=== PATIENT | female | born 1965 | race Caucasian/White ===

== ENCOUNTER → 2019-07-10 | Outpatient (CLI) | payer OTHER ==
--- NOTE | 2019-07-10 12:48 | EST ---
EXERCISE STRESS DATE OF SERVICE: 07/10/2019 AGE: 53 SEX: Female HT: 62 WT: 189 PROTOCOL: Husam STAGE: II DURATION OF EXERCISE: 4 minutes HEART RATE REST: 90 BLOOD PRESSURE REST: 143/73 MAXIMUM HEART RATE ACHIEVED: 150 MAXIMUM BLOOD PRESSURE: 180/53 85% MPHR: 144 100% MPHR: 169 METS: 5.8 INDICATIONS: Chest pain. CLINICAL INFORMATION: STRESS DATA: Heart rate 90, pressure is 143/73 mmHg. Baseline EKG showed sinus mechanism. The patient exercised on the treadmill according to Husam protocol for a total of 4 minutes and achieved 5.8 METs. Max heart rate was 150 which is about 89% of maximum predicted heart rate. Maximum blood pressure was 180/53 mmHg. Clinically, the patient has no symptoms of chest pain or discomfort and the EKG did not show any significant ST or T-wave abnormalities concerning for ischemia. CONCLUSION: 1. Average exercise tolerance. The patient exercised only for 4 minutes. 2. Normal EKG in response to exercise. 3. Essentially normal stress test for the patient. MMODL / IJN: [id number] /
== END | disposition home or self-care (01) ==
LOC: RADNMMAIN 08:39
PROVIDERS: ATTEND Internal Medicine
DX: I10 Essential (primary) hypertension (principal)
CPT/HCPCS: 93017

== ENCOUNTER → 2019-07-24 | Outpatient (CLI) | payer OTHER ==
--- NOTE | 2019-07-24 12:08 | ECHOF ---
Referral Reason:I10 Essential Hypertension MEASUREMENTS -------- HEIGHT: 157.5 cm WEIGHT: 86.6 kg BP: 144/79 RVIDd: 2.7 cm (< 3.3) IVSd: 0.9 cm (0.6 - 1.1) LVIDd: 4.1 cm (3.9 - 5.3) LVPWd: 0.9 cm (0.6 - 1.1) IVSs: 1.3 cm LVIDs: 2.9 cm LVPWs: 1.5 cm LA Diam: 2.8 cm (2.7 - 3.8) LAESV Index (A-L): 24.16 ml/m Ao Diam: 3.3 cm (2.0 - 3.7) AV Cusp: 2.0 cm (1.5 - 2.6) MV EXCURSION: 13.275 mm (> 18.000) MV EF SLOPE: 76 mm/s (70 - 150) EPSS: 0.4 cm MV E Jarrell: 0.80 m/s MV DecT: 276 ms MV A Jarrell: 0.80 m/s MV E/A Ratio: 1.00 AR PHT: 926 ms RAP: 5.00 mmHg RVSP: 25.15 mmHg TAPSE: 25.38 mm FINDINGS -------- Sinus rhythm. This was a technically adequate study. The left ventricular size is normal. Left ventricular wall thickness is normal. Overall left vent ricular systolic function is normal with, an EF between 55 - 60 %. The diastolic filling pattern is normal for the age of the patient 9.42. The right ventricle is normal in size. Normal LA size by volume 22+/-6 ml/m2. The right atrial size is normal. Interatrial and interventricular septum intact. The aortic valve is trileaflet and appears structurally normal. There is mild aortic regurgitation. The mitral valve is normal. Mild tricuspid regurgitation present. Right ventricular systolic pressure is normal at < 35 mmHg. The pulmonic valve was not well visualized. There is no pulmonic regurgitation present. The aortic root size is normal. Normal inferior vena cava with normal inspiratory collapse consistent with estimated right atrial pre ssure of 5 mmHg. There is no pericardial effusion. CONCLUSIONS -------- 1. Sinus rhythm. 2. This was a technically adequate study. 3. The left ventricular size is normal. 4. Left ventricular wall thickness is normal. 5. Overall left ventricular systolic function is normal with, an EF between 55 - 60 %. 6. The diastolic filling pattern is normal for the age of the patient 9.42 7. Normal LA size by volume 22+/-6 ml/m2. 8. The aortic valve is trileaflet and appears structurally normal. 9. There is mild aortic regurgitation. 10. The mitral valve is normal. 11. Mild tricuspid regurgitation present. 12. Right ventricular systolic pressure is normal at < 35 mmHg. 13. The pulmonic valve was not well visualized. 14. The aortic root size is normal. 15. Normal inferior vena cava with normal inspiratory collapse consistent with estimated right atrial pressure of 5 mmHg. 16. There is no pericardial effusion. RN TRANSITIONAL CARE: Neelima Soares RDCS
== END | disposition home or self-care (01) ==
LOC: RADECHMAIN 11:28
PROVIDERS: ATTEND Internal Medicine
DX: I08.2 Rheumatic disorders of both aortic and tricuspid valves (principal); I10 Essential (primary) hypertension
CPT/HCPCS: 93306

== ENCOUNTER → 2019-12-03 | Outpatient (CLI) | payer OTHER ==
--- NOTE | 2019-12-03 14:44 | XR ---
Left shoulder HISTORY: Trauma and pain 3 views of left shoulder Bone mineralization, joint spaces and alignment are relatively maintained, there is arthropathy at th e acromioclavicular joint. There is overlying artifact. No fracture or dislocation. Left lung apex as visualized is normal. IMPRESSION: Acromioclavicular joint arthropathy. No acute fracture or dislocation.
== END | disposition home or self-care (01) ==
LOC: RADXRYALE 11:43
PROVIDERS: ATTEND Internal Medicine
DX: M12.812 Other specific arthropathies, not elsewhere classified, left shoulder (principal)